=== PATIENT | male | born 1960 | race Caucasian/White ===

== ENCOUNTER → 2024-10-23 15:33 | Outpatient (REF) | payer OTHER, SELFPAY | LOC: HWRCS 15:33 | PROVIDERS: ATTENDING PHYSICIAN Family Medicine | DX: I35.0 Nonrheumatic aortic (valve) stenosis (principal) | CPT/HCPCS: 93306 ==

== ENCOUNTER → 2025-01-02 07:37 | Outpatient (REF) | payer OTHER, SELFPAY | LOC: HWRCS 07:37 | PROVIDERS: ATTENDING PHYSICIAN Internal Medicine Cardiovascular Disease; FAMILY PHYSICIAN Family Medicine | DX: R07.2 Precordial pain (principal) | CPT/HCPCS: 78452; 93017; A9500 ==